=== PATIENT | male | born 1970 | race Caucasian/White ===

== ENCOUNTER 2019-06-04 21:31 | Inpatient (IN) ==
--- NOTE | 2019-06-04 22:36 | DR.EXTPAIN ---
HPI - Time seen Time seen: 22:12 - PCP Primary Care Physician: PATRICIO - Complaint/Symptoms Chief Complaint Doctor Comments: Patient states he has cellulitis in his right leg and was in the emergency room four days ago and was placed on Septra and he thought it was getting better but it started turning red and the blep on his leg started getting larger and recently started draining. He denies fever, chills, cold or cough. States he was told to followup with is local doctor if it did not get better Thursday but the office was closed. States he has had a lump on his right lower leg for 2-3 months and he think he hurt it when he was climbing in his truck and hit his leg and thought he pulled or tore a muscle with the swelling. States he is a diabetic and is taking glipizide 10mg daily and he has been on the keto diet. He denies tobacco or alcohol usage. Chief Complaint:: PT AMBULATORY IN ED WITH C/O LEG WORSENING. WAS HERE Thursday AND GIVEN ANTIBIOTCS. PT STATES HE HAS BEEN TAKING THE MEDS. - Nurses notes reviewed Nurses Notes Review: Yes - Source History Provided: Patient - Mode of arrival Mode of Arrival: Ambulatory - Timing Onset of Chief Complaint: 05/18/19 - Context History of: None - Associated signs and symptoms Associated Signs and Symptoms: Swelling, Bruising (right lower leg) PMH - PMH Past Medical History: Yes Past Medical History: Hypertension, Dyslipidemia, Diabetes, Hypothyroidism, GERD, Arthritis Past Surgical History: Yes Surgical History: Ortho Surgery - Family History History of Family Medical Conditions: Yes Family Medical History: Diabetes Mellitus, Cancer, [place], Hypertension - Social History Does patient currently use any type of tobacco product: No Have you used tobacco products in the last 12 months: No Type of Tobacco Use: None Does any household member use tobacco: No Alcohol Use: Occasionally Do you use any recreational Drugs:: No Lives With: Dad Lives Where: Home - Travel Risk Coronavirus risk:travel/contact w/high risk person: No Has patient experienced Coronavirus symptoms: No - infectious screening In the last 2 months have you had wt loss of >10#?: NO Have you had fever, night sweats or hemotysis?: No Have you traveled outside the country in the last 6 months?: No Isolation: Standard ROS - Review of Systems Constitutional: No Symptoms Reported Eyes: No Symptoms Reported ENTM: No Symptoms Reported Respiratoy: No Symptoms Reported. negative: See HPI, Productive Cough, Non- Productive Cough, Moist Cough, Dry Cough, Hacking Cough, Barking Cough, Brassy Cough, Orthopnea, Short of Breath, Stridor, Wheezing, Hemoptysis, Other Cardiovascular: No Symptoms Reported Gastrointestinal/Abdominal: No Symptoms Reported Genitourinary: No Symptoms Reported. negative: See HPI, Discharge, Dysuria, Frequency, Hematuria, Pain, Bleeding, Other Neurological: No Symptoms Reported Musculoskeletal: No Symptoms Reported, Right, Leg (redness, erythema; 6-9 cm bl ister) Integumentary: No Symptoms Reported, Lesions (right lower leg) Hematologic/Lymphatic: No Symptoms Reported. negative: See HPI, Anemia, Blood C lots, Easy Bleeding, Easy Bruising, Swollen Glands, Lymphadenopathy, Other Endocrine: No Symptoms Reported Psychiatric: No Symptoms Reported. negative: See HPI, Anxiety, Depression, Hallucinations, Excessive crying, Suicidal, Other PE - General Limitations: No Limitations General Appearance: Alert - Head Head Exam: Normal Inspection, Atraumatic, Normocephalic - Eyes Eye exam: Normal Appearance, PERRL, EOMI. negative: Scleral Icterus, Conjunctival Injection, Nystagmus, Miosis, Mydrasis, Periorbital Swelling, Periorbital Tenderness, Other - ENT ENT Exam: Normal Exam, Normal Oropharynx, Normal External Ear Exam, Mucous Membranes Moist, TM's Normal Bilaterally - Neck Neck Exam: Normal Inspection, Full ROM, Trachea Midline. negative: Tenderness, Meningismus, Lymphadenopathy, Thyromegaly, Other - Chest Chest Inspection: Normal Inspection, Symmetric Chest Wall Rise - Respiratory Respiratory Exam: Normal Lung Sounds Bilat. negative: Accessory Muscle Use, Chest Wall Tenderness, Prolonged Expiratory Phase, Respiratory Distress, Stridor, Other Respiratory Exam: Bilateral Clear to Auscultation - Cardiovascular Cardiovascular Exam: Regular Rate, Normal Rhythm, Normal Heart Sounds. negative: Bradycardia, Tachycardia, Irregular Rhythm, Systolic Murmur, Diastolic Murmur, Rubs, Gallop, Clicks, JVD, +S1, +S2, +S3, +S4, Other - Abdominal Exam Abdominal Exam: Normal Inspection, Normal Bowel Sounds, Soft. negative: Distention, Tenderness, Guarding, Rebound, Rigidity, Dimnished Bowel Sounds, Hyperactive Bowel Sounds, Hypoactive Bowel Sounds, Organomegaly, Trauma, Incision, Ascites, Mass, Bruit, Pulsatile Mass, Hernia, Other Abdominal Tenderness: negative: RUQ, RLQ, LUQ, LLQ, Epigastrium, Suprapubic, Diffuse, Mild, Moderate, Severe, Other - Extremities Extremities Exam: Normal Inspection, Full ROM, Normal Capillary Refill, Edema (2+ edema right lower leg and foot; erythema right lower leg) - Upper Extremities Shoulder Exam: Normal Inspection, Full ROM. negative: Tenderness, Swelling, Abrasion, Laceration, Ecchymosis, Deformity, Crepitus, Dislocation, Erythema, Tenderness over AC Joint, Other Arm Exam: Normal Inspection, Full ROM. negative: Tenderness, Swelling, Abrasion , Laceration, Ecchymosis, Deformity, Crepitus, Erythema, Other Elbow Exam: Normal Inspection, Full ROM. negative: Tenderness, Swelling, Abrasion, Laceration, Ecchymosis, Deformity, Crepitus, Dislocation, Erythema, Effusion, Pain w/ pronation, Pain w/ Spuination, Tenderness over Radial Head, Other Forearm Exam: Normal Inspection, Full ROM. negative: Tenderness, Swelling, Abrasion, Laceration, Ecchymosis, Deformity, Crepitus, Erythema, Dislocation, Other Hand Exam: Normal Inspection, Full ROM. negative: Tenderness, Swelling, Abrasion, Laceration, Ecchymosis, Skin Avulsion, Deformity, Crepitus, Erythema, Dislocation, Amputation, Nail Avulsion, Subungual Hematoma, Other Neuromotor Exam: Normal Exam Neurosensory Exam: Normal Exam Upper Ext. Vascular Exam: Capillary Refill (normal) - Lower Extremities Hip/Pelvis Exam: Normal Inspection, Full ROM. negative: Tenderness, Swelling, Abrasion, Laceration, Ecchymosis, Deformity, Crepitus, Dislocation, Erythema, External Rotation, Internal Rotation, Shortening, Pelvis Stable, Other Upper Leg Exam: Normal Inspection, Full ROM. negative: Tenderness, Swelling, Abrasion, Laceration, Ecchymosis, Deformity, Crepitus, Dislocation, Erythema, Other Knee Exam: Normal Inspection, Full ROM. negative: Tenderness, Swelling, Abrasion, Laceration, Ecchymosis, Deformity, Crepitus, Dislocation, Erythema, Effusion, Anterior Drawer Sign, Posterior Draw Sign, Pain with Valgus, Laxity with Valgus, Pain with Varus, Knee Extension Intact, Other Lower Leg Exam: Normal Inspection, Full ROM, Tenderness, Swelling (right lower leg with erythematous area; serosanqunous drainage), Erythema Ankle Exam: Normal Inspection, Full ROM. negative: Tenderness, Swelling, Abrasion, Laceration, Ecchymosis, Deformity, Crepitus, Dislocation, Erythema, Tenderness over talofibular lig, Anterior Draw Sign, Other Foot/Toe Exam: Normal Inspection, Full ROM. negative: Tenderness, Swelling, Abrasion, Laceration, Ecchymosis, Deformity, Crepitus, Dislocation, Erythema, Amputation, Puncture Wound, Foreign Body, Calcaneal Tenderness, Nail Avulsion, Other Neurovascular/Tendon Exam: Normal Capillary Refill, Normal 2-point discrimination, Normal Fine/Light Touch Gait Exam: Observed and Normal - Back Back Exam: Normal Inspection, Full ROM. negative: Tenderness, (R) CVA T enderness, (L) CVA Tenderness, Muscle Spasm, Paraspinal Tenderness, Vertebral Tenderness, Rashes, (R) Sciatic Notch Tenderness, (L) Sciatic Notch Tendern, (R) Straight Leg Raise, (L) Straight Leg Raise, Other - Neurological Neurological Exam: Alert, Oriented X3, CN II-XII Intact, Normal Gait, Reflexes Normal - Psychiatric Psychiatric Exam: Normal Affect, Normal Mood. negative: Depressed, Agitated, Anxious, Flat Affect, Manic, Homicidal Ideation, Suicidal Ideation, Other - Skin Skin Exam: Warm, Dry, Intact, Normal Color, Erythema Type of Lesion: Abscess Distribution: RLE Description: Erythematous, Swelling, Macular, Bullous - Vital Signs Vitals: Temperature 98.2 F Pulse Rate 78 Respiratory Rate 20 Blood Pressure 157/70 O2 Sat by Pulse Oximetry 97 Course - Reevaluation 1st: Improved - Consultation Called: 00:12 Call Returned: 00:12 (Dr. Mcclain to admit) - Education/Counseling Education/Counseling: Patient Educated On: Treatment, Diagnosis, Needs for Follow Up ROR - Labs Reviewed Laboratory Results Reviewed?: Yes (All labs and x-ray results reviewed and discussed with patient) Result Diagrams: 06/04/19 22:53 06/04/19 22:53 - XRAY XRAY Interpreted by: Radiologist (right TIB/FIB: No evidence of fracture or joint dislocation. Diffuse soft tissue swelling right lower leg.) - Labs Reviewed Laboratory: 06/04/19 22:35 Leg - Right Gram Stain - Final WBC 21.0 X10^3/uL (3.6-10.0) H 06/04/19 22:53 RBC 5.80 X10^6/uL (4.7-6.0) 06/04/19 22:53 Hgb 17.1 g/dL (13.5-18.0) 06/04/19 22:53 Hct 50.4 % (42.0-54.0) 06/04/19 22:53 MCV 86.9 fL (80.0-100.0) 06/04/19 22:53 MCH 29.4 pg (27.0-34.0) 06/04/19 22:53 MCHC 33.9 g/dL (33.0-35.0) 06/04/19 22:53 RDW 13.6 % (11.6-16.5) 06/04/19 22:53 Plt Count 273 X10^3/uL (150.0-450.0) 06/04/19 22:53 Plt Count Comment Adequate (ADEQUATE) 06/04/19 22:53 MPV 8.9 fL (7.4-11.0) 06/04/19 22:53 Neut % (Auto) 78.2 % (42.0-75.0) H 06/04/19 22:53 Lymph % (Auto) 11.8 % (21.0-51.0) L 06/04/19 22:53 [place] % (Auto) 8.5 % (0.0-13.0) 06/04/19 22:53 Eos % (Auto) 1.0 % (0.9-2.9) 06/04/19 22:53 Baso % (Auto) 0.5 % (0.2-1.0) 06/04/19 22:53 Neut # (Auto) 16.4 x10^3/uL (2.2-4.8) H 06/04/19 22:53 Lymph # (Auto) 2.5 X10^3/uL (1.3-2.9) 06/04/19 22:53 [place] # (Auto) 1.8 x10^3/uL (0.3-0.8) H 06/04/19 22:53 Eos # (Auto) 0.2 x10^3/uL (0.0-0.2) 06/04/19 22:53 Baso # (Auto) 0.1 X10^3/uL (0.0-0.1) 06/04/19 22:53 Absolute Nucleated RBC 0.1 /100WBC 06/04/19 22:53 Total Counted 100 06/04/19 22:53 Neutrophils % (Manual) 79 % (39-76) H 06/04/19 22:53 Lymphocytes % (Manual) 13 % (13-43) 06/04/19 22:53 Monocytes % (Manual) 7 % (4-9) 06/04/19 22:53 Plt Clumps, EDTA Few 06/04/19 22:53 Plt Morphology Comment Normal (NORMAL) 06/04/19 22:53 RBC Morphology Normal (NORMAL) 06/04/19 22:53 D-Dimer 291 ng/mL (0-400) 06/04/19 22:53 Sodium 135 mmol/L (136-145) L 06/04/19 22:53 Corrected Sodium 135 mmol/L (136-145) L 06/04/19 22:53 Potassium 3.8 mmol/L (3.5-5.1) 06/04/19 22:53 Chloride 100 mmol/L (98-107) 06/04/19 22:53 Carbon Dioxide 28.0 mmol/L (21-32) 06/04/19 22:53 BUN 19 mg/dL (7-18) H 06/04/19 22:53 Creatinine 1.49 mg/dL (0.70-1.30) H 06/04/19 22:53 Est GFR (MDRD) Af Amer > 60 (>60) 06/04/19 22:53 Est GFR (MDRD) Non-Af 53 (>60) L 06/04/19 22:53 Glucose 120 mg/dL (65-99) H 06/04/19 22:53 Lactic Acid 1.5 mmol/L (0.4-2.0) 06/04/19 22:53 Calcium 8.8 mg/dL (8.5-10.1) 06/04/19 22:53 Corrected Calcium 9.9 mg/dL (8.5-10.1) 06/04/19 22:53 Total Bilirubin 0.40 mg/dL (0.2-1.0) 06/04/19 22:53 AST 26 Units/L (15-37) 06/04/19 22:53 ALT 42 Units/L (12-78) 06/04/19 22:53 Alkaline Phosphatase 73 Units/L (46-116) 06/04/19 22:53 Total Protein 6.9 g/dL (6.4-8.2) 06/04/19 22:53 Albumin 2.6 g/dL (3.4-5.0) L 06/04/19 22:53 Globulin 4.3 g/dL (2.5-4.5) 06/04/19 22:53 Albumin/Globulin Ratio 0.6 Ratio (1.1-2.1) L 06/04/19 22:53 Fluid WBC 835094 Cubic/mm 06/04/19 22:35 Fluid RBC 03987 Cubic/mm 06/04/19 22:35 Opioid - Opioid Risk Tool Age (Amos box if 16-45): No History of Preadolescent Sexual Abuse: No Total: 0 Total Score Risk Category: Low Risk - Diagnosis Discharge Problem: Cellulitis and abscess of right lower extremity, Failure of outpatient treatment Diabetes mellitus Qualifiers: Diabetes mellitus type: type 2 Diabetes mellitus complication status: with skin complications Chronic kidney disease (CKD) Qualifiers: Chronic kidney disease stage: stage 3 (moderate) Qualified Code(s): N18.3 - Chronic kidney disease, stage 3 (moderate) Hypertension Qualifiers: Hypertension type: essential hypertension Qualified Code(s): I10 - Essential (primary) hypertension - Discharge Plan Disposition: ADMITTED INPATIENT Condition: Stable - Follow ups/Referrals Follow ups/Referrals: YESSY PRO [Primary Care Provider] - 3 days - Instructions
[2019-06-04 23:08] LABS: BASOPHILS # (AUTO) 0.1 X10^3/uL (0.0-0.1); MEAN PLATELET VOLUME 8.9 fL (7.4-11.0); MONOCYTES # (AUTO) 1.8 x10^3/uL (0.3-0.8); NEUTROPHILS # (AUTO) 16.4 x10^3/uL (2.2-4.8)
[2019-06-04 23:12] LABS: BASOPHILS % (AUTO) 0.5 % (0.2-1.0); EOSINOPHILS # (AUTO) 0.2 x10^3/uL (0.0-0.2); HEMATOCRIT 50.4 % (42.0-54.0); HEMOGLOBIN 17.1 g/dL (13.5-18.0); LYMPHOCYTES # (AUTO) 2.5 X10^3/uL (1.3-2.9); LYMPHOCYTES % (AUTO) 11.8 % (21.0-51.0); MEAN CORPUSCULAR HEMOGLOBIN 29.4 pg (27.0-34.0); MEAN CORPUSCULAR HGB CONC 33.9 g/dL (33.0-35.0); MEAN CORPUSCULAR VOLUME 86.9 fL (80.0-100.0); MONOCYTES % (AUTO) 8.5 % (0.0-13.0); NEUTROPHILS % (AUTO) 78.2 % (42.0-75.0); PLATELET COUNT 273 X10^3/uL (150.0-450.0); RED CELL DISTRIBUTION WIDTH 13.6 % (11.6-16.5)
[2019-06-04 23:13] LABS: RBC BODY FLUID 35751 Cubic/mm; WBC BODY FLUID 245808 Cubic/mm
--- NOTE | 2019-06-04 23:13 | RAD ---
STUDY: LOWER LEG, TIB/FIB RIGHTCOMPARISON: NoneHISTORY: CELLULITIS WITH ABSCESS TO RIGHT LOWER LEGFINDINGS:There is no evidence of fracture or joint dislocation.There is no evidence of an embedded radiopaque foreign body.Diffuse soft tissue swelling is seen throughout the right lower extremity with a focal hop over the anterior aspect of the mid tibia.IMPRESSION:There is no evidence of fracture or joint dislocation.Electronically signed by: Derek Del Castillo (Jun 04, 2019 23:12:25)
[2019-06-04 23:18] LABS: ALANINE AMINOTRANSFERASE 42 Units/L (12-78); ALBUMIN 2.6 g/dL (3.4-5.0); ALKALINE PHOSPHATASE 73 Units/L (46-116); ASPARTATE AMINO TRANSFERASE 26 Units/L (15-37); BLOOD UREA NITROGEN 19 mg/dL (7-18); CALCIUM 8.8 mg/dL (8.5-10.1); CHLORIDE 100 mmol/L (98-107); COR CA(FOR HYPOALB) 9.9 mg/dL (8.5-10.1); COR NA(FOR HYPERGLY) 135 mmol/L (136-145); CREATININE 1.49 mg/dL (0.70-1.30); SODIUM 135 mmol/L (136-145); TOTAL PROTEIN 6.9 g/dL (6.4-8.2); eGFR NON BLACK RACES 53 (>60)
[2019-06-04 23:30] LABS: PLATELET MORPHOLOGY COMMENT NORMAL (NORMAL)
[2019-06-04 23:35] LABS: LACTIC ACID 1.5 mmol/L (0.4-2.0)
[2019-06-05] MEDS ORDERED: VANCOMYCIN IV *PREMIX 1 G/200 ML BAG 1 G/200 ML PIGGYBACK IV ONE (00:08)
[2019-06-05] MEDS ORDERED: ZOSYN VIAL 3.375 GRAMS 3.375 G in NS 100 ML IV + SPIKE MINIBAG* 100 ML IV ONE (00:08)
[2019-06-05] MEDS ORDERED: NS 1000 ML 1,000 ML ONE (00:11)
[2019-06-05] MEDS ORDERED: VANCOMYCIN HCL ONE (00:12)
[2019-06-05] MEDS ORDERED: NS 250 ML IV 250 ML IV ONE (00:12)
[2019-06-05] MEDS ORDERED: NS 100 ML IV + SPIKE MINIBAG* 100 ML IV ONE ×2 (00:16→05:31)
[2019-06-05] MEDS ORDERED: ZOSYN VIAL 3.375 GRAMS IV ONE ×2 (00:17→05:31)
[2019-06-05] MEDS ORDERED: VANCOMYCIN IV *PREMIX 1 G/200 ML BAG 1 G/200 ML PIGGYBACK IV SCH (00:30)
[2019-06-05] MEDS: ZOSYN VIAL 3.375 GRAMS 3.375 G in NS 100 ML IV + SPIKE MINIBAG* 100 ML IV SCH ×4 (00:34→23:45)
[2019-06-05] MEDS ORDERED: NORCO 5/325 MG TAB PO PRN (00:42)
[2019-06-05] MEDS ORDERED: ZOFRAN TAB 4 MG PO PRN (00:42)
[2019-06-05] MEDS ORDERED: MOTRIN TAB 600 MG PO PRN (00:42)
[2019-06-05 01:48] VITALS: BMI 44.6
[2019-06-05 06:11] LABS: BASOPHILS % (AUTO) 0.3 % (0.2-1.0); EOSINOPHILS # (AUTO) 0.2 x10^3/uL (0.0-0.2); EOSINOPHILS % (AUTO) 1.2 % (0.9-2.9); HEMATOCRIT 46.1 % (42.0-54.0); HEMOGLOBIN 15.7 g/dL (13.5-18.0); LYMPHOCYTES # (AUTO) 1.7 X10^3/uL (1.3-2.9); MEAN CORPUSCULAR HEMOGLOBIN 29.9 pg (27.0-34.0); MEAN CORPUSCULAR VOLUME 87.8 fL (80.0-100.0); MEAN PLATELET VOLUME 9.2 fL (7.4-11.0); MONOCYTES # (AUTO) 1.3 x10^3/uL (0.3-0.8); MONOCYTES % (AUTO) 9.6 % (0.0-13.0); NEUTROPHILS # (AUTO) 10.6 x10^3/uL (2.2-4.8); NEUTROPHILS % (AUTO) 76.9 % (42.0-75.0); PLATELET COUNT 241 X10^3/uL (150.0-450.0); RED BLOOD COUNT 5.25 X10^6/uL (4.7-6.0); WHITE BLOOD COUNT 13.8 X10^3/uL (3.6-10.0)
[2019-06-05 06:20] LABS: ALANINE AMINOTRANSFERASE 37 Units/L (12-78); ALBUMIN 2.2 g/dL (3.4-5.0); ALKALINE PHOSPHATASE 68 Units/L (46-116); ASPARTATE AMINO TRANSFERASE 24 Units/L (15-37); BLOOD UREA NITROGEN 17 mg/dL (7-18); CALCIUM 8.3 mg/dL (8.5-10.1); CARBON DIOXIDE 24.3 mmol/L (21-32); CHLORIDE 101 mmol/L (98-107); COR CA(FOR HYPOALB) 9.7 mg/dL (8.5-10.1); COR NA(FOR HYPERGLY) 137 mmol/L (136-145); CREATININE 1.19 mg/dL (0.70-1.30); SODIUM 134 mmol/L (136-145); TOTAL PROTEIN 6.2 g/dL (6.4-8.2); eGFR NON BLACK RACES > 60 (>60)
[2019-06-05] MEDS: VANCOMYCIN HCL 2 G in NS 500 ML IV 500 ML IV SCH ×2 (09:30→20:55)
--- NOTE | 2019-06-05 10:46 | DR.H&P ---
H&P History & Physical for Day of: H&P Date: 06/05/19 Chief Complaint Chief Complaint: right leg swelling and redness Allergies Allergies Allergy/AdvReac Type Severity Reaction Status Date / Time No Known Drug Allergies Allergy Verified 05/31/19 20:41 History of Present Illness History of Present Illness: Mr. Brito is a 49y/o male with a PMH of HTN, HLD, DM and obesity presented with worsening right leg swelling, redness and drainage. He states he slipped of his truck a week ago and had a small injury to his anterior right leg. He was seen in the ED few days ago and given Bactrim for cellulitis. He states the redness and swelling kept getting worse and he also noticed serosanguineous fluid draining from the center. He denies fever or chills, no N/V/D or abdominal pain. He reports having cellulitis over 10 yrs ago, no hx of MRSA or bacteremia. ED work-up: -Right leg wound was drained, XR showed diffuse soft tissue swelling. Cultures were collected and he was started on Vanc and Zosyn. He also had mild elevation in Cr. Plan: continue Vanc and Zosyn, add clindamycin for [address] Monitor [address] Cabral consulted for possible I&D. Resume home medications except acei and Lasix due to SONIA. Monitor AM labs. Past Medical History Past Medical History: Arthritis, Diabetes, Dyslipidemia, GERD, Hypertension and Hypothyroidism Past Surgical History Surgical History: Ortho Surgery Family History Family Medical History: Diabetes Mellitus, Cancer, [place] and Hypertension Social History Does patient currently use any type of tobacco product: No Have you used tobacco products in the last 12 months: Yes Type of Tobacco Use: Cigars Does any household member use tobacco: No Alcohol Use: Rarely Drug Use: None Medications Home Medications: No Known Drug Allergies Allergy (Verified 05/31/19 20:41) CONTINUE taking the following medications atorvastatin 40 mg PO DAILY 06/05/19 [History] hydrocodone-acetaminophen [[place]] 1 tab PO BID PRN 06/05/19 [History] Labs Result Diagrams: 06/05/19 05:21 06/05/19 05:21 Labs: 06/04/19 22:35 Leg - Right Gram Stain - Final Laboratory WBC 13.8 X10^3/uL (3.6-10.0) H 06/05/19 05:21 RBC 5.25 X10^6/uL (4.7-6.0) 06/05/19 05:21 Hgb 15.7 g/dL (13.5-18.0) 06/05/19 05:21 Hct 46.1 % (42.0-54.0) 06/05/19 05:21 MCV 87.8 fL (80.0-100.0) 06/05/19 05:21 MCH 29.9 pg (27.0-34.0) 06/05/19 05:21 MCHC 34.0 g/dL (33.0-35.0) 06/05/19 05:21 RDW 14.0 % (11.6-16.5) 06/05/19 05:21 Plt Count 241 X10^3/uL (150.0-450.0) 06/05/19 05:21 Plt Count Comment Adequate (ADEQUATE) 06/04/19 22:53 MPV 9.2 fL (7.4-11.0) 06/05/19 05:21 Neut % (Auto) 76.9 % (42.0-75.0) H 06/05/19 05:21 Lymph % (Auto) 12.0 % (21.0-51.0) L 06/05/19 05:21 [place] % (Auto) 9.6 % (0.0-13.0) 06/05/19 05:21 Eos % (Auto) 1.2 % (0.9-2.9) 06/05/19 05:21 Baso % (Auto) 0.3 % (0.2-1.0) 06/05/19 05:21 Neut # (Auto) 10.6 x10^3/uL (2.2-4.8) H 06/05/19 05:21 Lymph # (Auto) 1.7 X10^3/uL (1.3-2.9) 06/05/19 05:21 [place] # (Auto) 1.3 x10^3/uL (0.3-0.8) H 06/05/19 05:21 Eos # (Auto) 0.2 x10^3/uL (0.0-0.2) 06/05/19 05:21 Baso # (Auto) 0.0 X10^3/uL (0.0-0.1) 06/05/19 05:21 Absolute Nucleated RBC 0.0 /100WBC 06/05/19 05:21 Total Counted 100 06/04/19 22:53 Neutrophils % (Manual) 79 % (39-76) H 06/04/19 22:53 Lymphocytes % (Manual) 13 % (13-43) 06/04/19 22:53 Monocytes % (Manual) 7 % (4-9) 06/04/19 22:53 Plt Clumps, EDTA Few 06/04/19 22:53 Plt Morphology Comment Normal (NORMAL) 06/04/19 22:53 RBC Morphology Normal (NORMAL) 06/04/19 22:53 D-Dimer 291 ng/mL (0-400) 06/04/19 22:53 Sodium 134 mmol/L (136-145) L 06/05/19 05:21 Corrected Sodium 137 mmol/L (136-145) 06/05/19 05:21 Potassium 3.7 mmol/L (3.5-5.1) 06/05/19 05:21 Chloride 101 mmol/L (98-107) 06/05/19 05:21 Carbon Dioxide 24.3 mmol/L (21-32) 06/05/19 05:21 BUN 17 mg/dL (7-18) 06/05/19 05:21 Creatinine 1.19 mg/dL (0.70-1.30) 06/05/19 05:21 Est GFR (MDRD) Af Amer > 60 (>60) 06/05/19 05:21 Est GFR (MDRD) Non-Af > 60 (>60) 06/05/19 05:21 Glucose 213 mg/dL (65-99) H 06/05/19 05:21 Lactic Acid 1.5 mmol/L (0.4-2.0) 06/04/19 22:53 Calcium 8.3 mg/dL (8.5-10.1) L 06/05/19 05:21 Corrected Calcium 9.7 mg/dL (8.5-10.1) 06/05/19 05:21 Total Bilirubin 0.50 mg/dL (0.2-1.0) 06/05/19 05:21 AST 24 Units/L (15-37) 06/05/19 05:21 ALT 37 Units/L (12-78) 06/05/19 05:21 Alkaline Phosphatase 68 Units/L (46-116) 06/05/19 05:21 Total Protein 6.2 g/dL (6.4-8.2) L 06/05/19 05:21 Albumin 2.2 g/dL (3.4-5.0) L 06/05/19 05:21 Globulin 4.0 g/dL (2.5-4.5) 06/05/19 05:21 Albumin/Globulin Ratio 0.6 Ratio (1.1-2.1) L 06/05/19 05:21 Fluid WBC 138535 Cubic/mm 06/04/19 22:35 Fluid RBC 33146 Cubic/mm 06/04/19 22:35 Review of Systems Constitutional: denies Fever and Weakness Eyes: No Symptoms Reported ENT: No Symptoms Reported Respiratory: No Symptoms Reported Cardiovascular: No Symptoms Reported Gastrointestinal: No Symptoms Reported Genitourinary: No Symptoms Reported Musculoskeletal: Back Pain and Leg Pain Skin: Wound Neurological: No Symptoms Reported Physical Exam Vital Signs: Temperature 98.1 F Pulse Rate [Apical] 77 Pulse Rate [Left Brachial] 78 Pulse Rate 78 Respiratory Rate 20 Blood Pressure [Left Arm] 142/68 Blood Pressure 144/74 O2 Sat by Pulse Oximetry 98 Oriented: Normal Eyes: Normal Ear: Normal Throat: Normal Respiratory: Clear Throughout Cardiovascular: Normal Auscultation: Bowel Sounds: Normal Palpation: Normal Tenderness: Normal Skin: Red, Wound and Other (right anterior leg, erythematous, abscess collection in the center, raised, warm, non-tender, no drainage noted ) Psychiatric: Normal Mood Description: Calm Affect: Normal Speech Pattern: Clear and Appropriate Assessment/Plan (1) Cellulitis and abscess of right lower extremity: Status: Acute (2) Diabetes mellitus: Qualifiers: Diabetes mellitus complication detail: with other skin complication Diabetes mellitus complication status: with skin complications Diabetes mellitus half-way insulin use: without meterman use Diabetes mellitus type: type 2 Qualified Code(s): E11.628 - Type 2 diabetes mellitus with other skin complications Status: Acute (3) Hypertension: Qualifiers: Hypertension type: essential hypertension Qualified Code(s): I10 - Essential (primary) hypertension Status: Acute (4) GERD (gastroesophageal reflux disease): Qualifiers: Esophagitis presence: esophagitis presence not specified Qualified Code(s): K21.9 - Gastro-esophageal reflux disease without esophagitis Status: Acute (5) HLD (hyperlipidemia): Qualifiers: Hyperlipidemia type: unspecified Qualified Code(s): E78.5 - Hyperlipidemia, unspecified Status: Acute (6) Hypothyroidism: Qualifiers: Hypothyroidism type: unspecified Qualified Code(s): E03.9 - Hypothyroidism, unspecified Status: Acute Review H&P Reviewed: Yes Patient was examined?: Yes
[2019-06-05] MEDS: TENORMIN PO SCH (11:00)
[2019-06-05] MEDS: LIPITOR TAB 40 MG PO SCH (11:00)
[2019-06-05] MEDS: CARDIZEM CD 120 MG 24-HR PO SCH (11:00)
[2019-06-05] MEDS: SYNTHROID 25 mcg TAB PO SCH (11:00)
[2019-06-05] MEDS: ALDACTONE TAB 25 MG PO SCH (11:00)
[2019-06-05] MEDS: CLEOCIN 600 MG IV PREMIX 600 MG/50 ML BAG IV SCH ×2 (12:00→20:10)
[2019-06-05] MEDS ORDERED: XYLOCAINE 1 % (PLAIN) ONE (12:14)
[2019-06-05] MEDS: HumuLIN R SC PRN (21:08)
[2019-06-06 06:05] LABS: BASOPHILS # (AUTO) 0.1 X10^3/uL (0.0-0.1); BASOPHILS % (AUTO) 0.9 % (0.2-1.0); EOSINOPHILS # (AUTO) 0.3 x10^3/uL (0.0-0.2); EOSINOPHILS % (AUTO) 2.5 % (0.9-2.9); HEMATOCRIT 46.2 % (42.0-54.0); HEMOGLOBIN 15.4 g/dL (13.5-18.0); LYMPHOCYTES # (AUTO) 2.1 X10^3/uL (1.3-2.9); LYMPHOCYTES % (AUTO) 18.4 % (21.0-51.0); MEAN CORPUSCULAR HGB CONC 33.3 g/dL (33.0-35.0); MEAN CORPUSCULAR VOLUME 87.3 fL (80.0-100.0); MEAN PLATELET VOLUME 8.9 fL (7.4-11.0); MONOCYTES % (AUTO) 8.9 % (0.0-13.0); NEUTROPHILS % (AUTO) 69.3 % (42.0-75.0); PLATELET COUNT 283 X10^3/uL (150.0-450.0); WHITE BLOOD COUNT 11.5 X10^3/uL (3.6-10.0)
[2019-06-06] MEDS: CLEOCIN 600 MG IV PREMIX 600 MG/50 ML BAG IV SCH (06:10)
[2019-06-06 06:11] LABS: BLOOD UREA NITROGEN 12 mg/dL (7-18); CALCIUM 8.1 mg/dL (8.5-10.1); CARBON DIOXIDE 27.1 mmol/L (21-32); CHLORIDE 105 mmol/L (98-107); COR NA(FOR HYPERGLY) 139 mmol/L (136-145); CREATININE 1.07 mg/dL (0.70-1.30); SODIUM 139 mmol/L (136-145); eGFR NON BLACK RACES > 60 (>60)
[2019-06-06] MEDS: ZOSYN VIAL 3.375 GRAMS 3.375 G in NS 100 ML IV + SPIKE MINIBAG* 100 ML IV SCH ×3 (06:45→22:14)
--- NOTE | 2019-06-06 08:19 | PCM.PROG ---
Progress Note Progress Note for Day of Date of Exam: 06/06/19 Subjective Subjective: Patient seen at bedside, no acute events overnight. Dr. Cabral performed bedside I&D yesterday, tolerated well and cultures were sent. Wound cultures pending. Patient denies any pain, no fever or chills. Denies N/V/D or abdominal pain. Will continue IV abx, follow Dr. Cabral's recommendations. Redness and swelling has improved. Past Medical Family Social History Past Med/Fam/Surg Hx: No changes since H&P Allergies: Allergies No Known Drug Allergies Allergy (Verified 05/31/19 20:41) Review of Systems ROS: No change since H&P Vital Signs and I&O's Vital Signs: Temperature 98.3 F Pulse Rate [Apical] 60 Pulse Rate [Left Brachial] 78 Pulse Rate 78 Respiratory Rate 18 Blood Pressure [Left Arm] 128/65 Blood Pressure 144/74 O2 Sat by Pulse Oximetry 100 Intake and Output: Intake & Output 06/03/19 06/04/19 06/05/19 06/06/19 23:59 23:59 23:59 23:59 Intake Total 2874 / 2874 420 / 420 Output Total 2700 / 2700 525 / 525 Balance 174 / 174 -105 / -105 Physical Exam Oriented: Normal Eyes: Normal Ear: Normal Throat: Normal Respiratory: Normal Cardiovascular: Normal Auscultation: Bowel Sounds: Normal Tenderness: Normal Skin: Red, Wound and Other (right leg dressed, surrounding erythema and swelling has reduced , non-tender ) Psychiatric: Normal Mood Description: Calm Affect: Normal Speech Pattern: Clear and Appropriate Laboratory and Diagnostics Result Diagrams: 06/06/19 04:32 06/06/19 04:32 Labs: 06/04/19 22:35 Leg - Right Gram Stain - Final Laboratory WBC 11.5 X10^3/uL (3.6-10.0) H 06/06/19 04:32 RBC 5.30 X10^6/uL (4.7-6.0) 06/06/19 04:32 Hgb 15.4 g/dL (13.5-18.0) 06/06/19 04:32 Hct 46.2 % (42.0-54.0) 06/06/19 04:32 MCV 87.3 fL (80.0-100.0) 06/06/19 04:32 MCH 29.0 pg (27.0-34.0) 06/06/19 04:32 MCHC 33.3 g/dL (33.0-35.0) 06/06/19 04:32 RDW 14.0 % (11.6-16.5) 06/06/19 04:32 Plt Count 283 X10^3/uL (150.0-450.0) 06/06/19 04:32 Plt Count Comment Adequate (ADEQUATE) 06/04/19 22:53 MPV 8.9 fL (7.4-11.0) 06/06/19 04:32 Neut % (Auto) 69.3 % (42.0-75.0) 06/06/19 04:32 Lymph % (Auto) 18.4 % (21.0-51.0) L 06/06/19 04:32 [place] % (Auto) 8.9 % (0.0-13.0) 06/06/19 04:32 Eos % (Auto) 2.5 % (0.9-2.9) 06/06/19 04:32 Baso % (Auto) 0.9 % (0.2-1.0) 06/06/19 04:32 Neut # (Auto) 8.0 x10^3/uL (2.2-4.8) H 06/06/19 04:32 Lymph # (Auto) 2.1 X10^3/uL (1.3-2.9) 06/06/19 04:32 [place] # (Auto) 1.0 x10^3/uL (0.3-0.8) H 06/06/19 04:32 Eos # (Auto) 0.3 x10^3/uL (0.0-0.2) H 06/06/19 04:32 Baso # (Auto) 0.1 X10^3/uL (0.0-0.1) 06/06/19 04:32 Absolute Nucleated RBC 0.0 /100WBC 06/06/19 04:32 Total Counted 100 06/04/19 22:53 Neutrophils % (Manual) 79 % (39-76) H 06/04/19 22:53 Lymphocytes % (Manual) 13 % (13-43) 06/04/19 22:53 Monocytes % (Manual) 7 % (4-9) 06/04/19 22:53 Plt Clumps, EDTA Few 06/04/19 22:53 Plt Morphology Comment Normal (NORMAL) 06/04/19 22:53 RBC Morphology Normal (NORMAL) 06/04/19 22:53 D-Dimer 291 ng/mL (0-400) 06/04/19 22:53 Sodium 139 mmol/L (136-145) 06/06/19 04:32 Corrected Sodium 139 mmol/L (136-145) 06/06/19 04:32 Potassium 3.9 mmol/L (3.5-5.1) 06/06/19 04:32 Chloride 105 mmol/L (98-107) 06/06/19 04:32 Carbon Dioxide 27.1 mmol/L (21-32) 06/06/19 04:32 BUN 12 mg/dL (7-18) 06/06/19 04:32 Creatinine 1.07 mg/dL (0.70-1.30) 06/06/19 04:32 Est GFR (MDRD) Af Amer > 60 (>60) 06/06/19 04:32 Est GFR (MDRD) Non-Af > 60 (>60) 06/06/19 04:32 Glucose 120 mg/dL (65-99) H 06/06/19 04:32 POC Glucose (mg/dL) 116 mg/dL (65-99) H 06/06/19 06:12 Lactic Acid 1.5 mmol/L (0.4-2.0) 06/04/19 22:53 Calcium 8.1 mg/dL (8.5-10.1) L 06/06/19 04:32 Corrected Calcium 9.7 mg/dL (8.5-10.1) 06/05/19 05:21 Total Bilirubin 0.50 mg/dL (0.2-1.0) 06/05/19 05:21 AST 24 Units/L (15-37) 06/05/19 05:21 ALT 37 Units/L (12-78) 06/05/19 05:21 Alkaline Phosphatase 68 Units/L (46-116) 06/05/19 05:21 Total Protein 6.2 g/dL (6.4-8.2) L 06/05/19 05:21 Albumin 2.2 g/dL (3.4-5.0) L 06/05/19 05:21 Globulin 4.0 g/dL (2.5-4.5) 06/05/19 05:21 Albumin/Globulin Ratio 0.6 Ratio (1.1-2.1) L 06/05/19 05:21 Fluid WBC 319011 Cubic/mm 06/04/19 22:35 Fluid RBC 63933 Cubic/mm 06/04/19 22:35 Plan (1) Cellulitis and abscess of right lower extremity: Status: Acute (2) Diabetes mellitus: Status: Acute Qualifiers: Diabetes mellitus complication detail: with other skin complication Diabetes mellitus complication status: with skin complications Diabetes mellitus photography editor insulin use: without photography editor use Diabetes mellitus type: type 2 Qualified Code(s): E11.628 - Type 2 diabetes mellitus with other skin complications (3) Hypertension: Status: Acute Qualifiers: Hypertension type: essential hypertension Qualified Code(s): I10 - Essential (primary) hypertension (4) GERD (gastroesophageal reflux disease): Status: Acute Qualifiers: Esophagitis presence: esophagitis presence not specified Qualified Code(s): K21.9 - Gastro-esophageal reflux disease without esophagitis (5) HLD (hyperlipidemia): Status: Acute Qualifiers: Hyperlipidemia type: unspecified Qualified Code(s): E78.5 - Hyperlipidemia, unspecified (6) Hypothyroidism: Status: Acute Qualifiers: Hypothyroidism type: unspecified Qualified Code(s): E03.9 - Hypothyroidism, unspecified
[2019-06-06] MEDS: LIPITOR TAB 40 MG PO SCH (08:52)
[2019-06-06] MEDS: SYNTHROID 25 mcg TAB PO SCH (08:52)
[2019-06-06] MEDS: CARDIZEM CD 120 MG 24-HR PO SCH (08:52)
[2019-06-06] MEDS: ALDACTONE TAB 25 MG PO SCH (08:53)
[2019-06-06] MEDS: TENORMIN PO SCH (08:53)
--- NOTE | 2019-06-06 09:23 | DR.PROGNOT ---
Hospital Progress Notes - Progress Note for Day of: Progress Note Date: 06/06/19 - Chief Complaint Chief Complaint: having large amount of drainage required dressing changes ,. no pain ( severe neuropahy ). - Past Medical Family Social History Past Med/Fam/Surg Hx: No changes since H&P Allergies: Allergies No Known Drug Allergies Allergy (Verified 05/31/19 20:41) - Review Of Systems ROS: No change since H&P - Vital Signs Vital Signs: Temperature 98.3 F Pulse Rate [Apical] 60 Pulse Rate [Left Brachial] 78 Pulse Rate 78 Respiratory Rate 18 Blood Pressure [Left Arm] 128/65 Blood Pressure 144/74 O2 Sat by Pulse Oximetry 100 - Physical Exam Oriented: Normal Eyes: Normal Ear: Normal Throat: Normal Respiratory: Normal Cardiovascular: Normal GI:Auscultation: Normal GI:Palpation: Normal GI: Tenderness: Normal Skin: Red, Wound, Other (right leg dressed, surrounding erythema and swelling watters s reduced , non-tender) Psychiatric: Normal Mood Description: Calm Affect: Normal Speech Pattern: Clear, Appropriate - Laboratory and Diagnostics Result Diagrams: 06/06/19 04:32 06/06/19 04:32 Labs: 06/04/19 22:35 Leg - Right Gram Stain - Final Laboratory WBC 11.5 X10^3/uL (3.6-10.0) H 06/06/19 04:32 RBC 5.30 X10^6/uL (4.7-6.0) 06/06/19 04:32 Hgb 15.4 g/dL (13.5-18.0) 06/06/19 04:32 Hct 46.2 % (42.0-54.0) 06/06/19 04:32 MCV 87.3 fL (80.0-100.0) 06/06/19 04:32 MCH 29.0 pg (27.0-34.0) 06/06/19 04:32 MCHC 33.3 g/dL (33.0-35.0) 06/06/19 04:32 RDW 14.0 % (11.6-16.5) 06/06/19 04:32 Plt Count 283 X10^3/uL (150.0-450.0) 06/06/19 04:32 Plt Count Comment Adequate (ADEQUATE) 06/04/19 22:53 MPV 8.9 fL (7.4-11.0) 06/06/19 04:32 Neut % (Auto) 69.3 % (42.0-75.0) 06/06/19 04:32 Lymph % (Auto) 18.4 % (21.0-51.0) L 06/06/19 04:32 [place] % (Auto) 8.9 % (0.0-13.0) 06/06/19 04:32 Eos % (Auto) 2.5 % (0.9-2.9) 06/06/19 04:32 Baso % (Auto) 0.9 % (0.2-1.0) 06/06/19 04:32 Neut # (Auto) 8.0 x10^3/uL (2.2-4.8) H 06/06/19 04:32 Lymph # (Auto) 2.1 X10^3/uL (1.3-2.9) 06/06/19 04:32 [place] # (Auto) 1.0 x10^3/uL (0.3-0.8) H 06/06/19 04:32 Eos # (Auto) 0.3 x10^3/uL (0.0-0.2) H 06/06/19 04:32 Baso # (Auto) 0.1 X10^3/uL (0.0-0.1) 06/06/19 04:32 Absolute Nucleated RBC 0.0 /100WBC 06/06/19 04:32 Total Counted 100 06/04/19 22:53 Neutrophils % (Manual) 79 % (39-76) H 06/04/19 22:53 Lymphocytes % (Manual) 13 % (13-43) 06/04/19 22:53 Monocytes % (Manual) 7 % (4-9) 06/04/19 22:53 Plt Clumps, EDTA Few 06/04/19 22:53 Plt Morphology Comment Normal (NORMAL) 06/04/19 22:53 RBC Morphology Normal (NORMAL) 06/04/19 22:53 D-Dimer 291 ng/mL (0-400) 06/04/19 22:53 Sodium 139 mmol/L (136-145) 06/06/19 04:32 Corrected Sodium 139 mmol/L (136-145) 06/06/19 04:32 Potassium 3.9 mmol/L (3.5-5.1) 06/06/19 04:32 Chloride 105 mmol/L (98-107) 06/06/19 04:32 Carbon Dioxide 27.1 mmol/L (21-32) 06/06/19 04:32 BUN 12 mg/dL (7-18) 06/06/19 04:32 Creatinine 1.07 mg/dL (0.70-1.30) 06/06/19 04:32 Est GFR (MDRD) Af Amer > 60 (>60) 06/06/19 04:32 Est GFR (MDRD) Non-Af > 60 (>60) 06/06/19 04:32 Glucose 120 mg/dL (65-99) H 06/06/19 04:32 POC Glucose (mg/dL) 116 mg/dL (65-99) H 06/06/19 06:12 Hemoglobin A1c 6.6 % 06/06/19 04:32 Lactic Acid 1.5 mmol/L (0.4-2.0) 06/04/19 22:53 Calcium 8.1 mg/dL (8.5-10.1) L 06/06/19 04:32 Corrected Calcium 9.7 mg/dL (8.5-10.1) 06/05/19 05:21 Total Bilirubin 0.50 mg/dL (0.2-1.0) 06/05/19 05:21 AST 24 Units/L (15-37) 06/05/19 05:21 ALT 37 Units/L (12-78) 06/05/19 05:21 Alkaline Phosphatase 68 Units/L (46-116) 06/05/19 05:21 Total Protein 6.2 g/dL (6.4-8.2) L 06/05/19 05:21 Albumin 2.2 g/dL (3.4-5.0) L 06/05/19 05:21 Globulin 4.0 g/dL (2.5-4.5) 06/05/19 05:21 Albumin/Globulin Ratio 0.6 Ratio (1.1-2.1) L 06/05/19 05:21 Fluid WBC 592958 Cubic/mm 06/04/19 22:35 Fluid RBC 23597 Cubic/mm 06/04/19 22:35 - Assessment and Plan 1: large abscess Rt lower extremity , S/P I&D . severe diabetic neuropathy . morbid obesity . HTN . same local care , IV ATB , diabetic control and DVT prophylaxis . - Problem Patient Problems: Patient Problems Hypothyroidism (Acute) E03.9 HLD (hyperlipidemia) (Acute) E78.5 GERD (gastroesophageal reflux disease) (Acute) K21.9 Cellulitis and abscess of right lower extremity (Acute) L03.115, L02.415 Diabetes mellitus (Acute) E11.9 Chronic kidney disease (CKD) (Acute) N18.9 Failure of outpatient treatment (Acute) Z78.9 Hypertension (Acute) I10
[2019-06-06] MEDS: VANCOMYCIN HCL 2 G in NS 500 ML IV 500 ML IV SCH ×2 (09:40→22:14)
[2019-06-06] MEDS ORDERED: LOVENOX INJ 40 MG SYR SC SCH (11:00)
[2019-06-06] MEDS: HumuLIN R SC PRN ×2 (11:21→22:15)
[2019-06-06] MEDS ORDERED: PHARMACY COMMENT IV NR (20:30)
[2019-06-06 20:56] LABS: CREATININE 1.29 mg/dL (0.70-1.30); VANCOMYCIN,TROUGH 10.8 ug/mL (15-20)
[2019-06-06] MEDS: LOVENOX INJ 40 MG SYR SC SCH (22:16)
[2019-06-07 05:06] LABS: BASOPHILS # (AUTO) 0.1 X10^3/uL (0.0-0.1); BASOPHILS % (AUTO) 0.5 % (0.2-1.0); EOSINOPHILS # (AUTO) 0.3 x10^3/uL (0.0-0.2); EOSINOPHILS % (AUTO) 2.6 % (0.9-2.9); HEMATOCRIT 46.9 % (42.0-54.0); HEMOGLOBIN 15.8 g/dL (13.5-18.0); LYMPHOCYTES # (AUTO) 1.9 X10^3/uL (1.3-2.9); LYMPHOCYTES % (AUTO) 13.8 % (21.0-51.0); MEAN CORPUSCULAR HEMOGLOBIN 29.2 pg (27.0-34.0); MEAN CORPUSCULAR HGB CONC 33.7 g/dL (33.0-35.0); MEAN CORPUSCULAR VOLUME 86.4 fL (80.0-100.0); MEAN PLATELET VOLUME 8.5 fL (7.4-11.0); MONOCYTES # (AUTO) 0.8 x10^3/uL (0.3-0.8); MONOCYTES % (AUTO) 6.1 % (0.0-13.0); NEUTROPHILS # (AUTO) 10.5 x10^3/uL (2.2-4.8); PLATELET COUNT 298 X10^3/uL (150.0-450.0); RED BLOOD COUNT 5.43 X10^6/uL (4.7-6.0); RED CELL DISTRIBUTION WIDTH 13.7 % (11.6-16.5); WHITE BLOOD COUNT 13.7 X10^3/uL (3.6-10.0)
[2019-06-07 05:12] LABS: BLOOD UREA NITROGEN 12 mg/dL (7-18); CALCIUM 8.1 mg/dL (8.5-10.1); CARBON DIOXIDE 27.1 mmol/L (21-32); CHLORIDE 103 mmol/L (98-107); COR NA(FOR HYPERGLY) 138 mmol/L (136-145); CREATININE 1.12 mg/dL (0.70-1.30); SODIUM 137 mmol/L (136-145); eGFR NON BLACK RACES > 60 (>60)
[2019-06-07] MEDS: ZOSYN VIAL 3.375 GRAMS 3.375 G in NS 100 ML IV + SPIKE MINIBAG* 100 ML IV SCH (05:58)
[2019-06-07] MEDS ORDERED: GLUCOTROL PO SCH (08:05)
[2019-06-07] MEDS ORDERED: LOTENSIN TAB 10 MG PO SCH (09:00)
[2019-06-07] MEDS ORDERED: LASIX PO SCH (09:00)
[2019-06-07] MEDS: LIPITOR TAB 40 MG PO SCH (09:34)
[2019-06-07] MEDS: SYNTHROID 25 mcg TAB PO SCH (09:34)
[2019-06-07] MEDS: ALDACTONE TAB 25 MG PO SCH (09:35)
[2019-06-07] MEDS: CARDIZEM CD 120 MG 24-HR PO SCH (09:35)
[2019-06-07] MEDS: VANCOMYCIN HCL 2 G in NS 500 ML IV 500 ML IV SCH (09:36)
[2019-06-07] MEDS: TENORMIN PO SCH (09:36)
--- NOTE | 2019-06-07 09:44 | DR.PROGNOT ---
Hospital Progress Notes - Progress Note for Day of: Progress Note Date: 06/07/19 - Chief Complaint Chief Complaint: less drainage today . cellulitis is subsiding with less erythema and edema . final culture is staph Aureus sensitive to Augmentin and Bactrim . dressing was changed and packing was removed . - Past Medical Family Social History Past Med/Fam/Surg Hx: No changes since H&P Allergies: Allergies No Known Drug Allergies Allergy (Verified 05/31/19 20:41) - Review Of Systems ROS: No change since H&P - Vital Signs Vital Signs: Temperature 98.4 F Pulse Rate [Apical] 77 Pulse Rate [Left Brachial] 78 Pulse Rate 78 Respiratory Rate 20 Blood Pressure [Left Arm] 154/93 Blood Pressure 144/74 O2 Sat by Pulse Oximetry 95 - Physical Exam Oriented: Normal Eyes: Normal Ear: Normal Throat: Normal Respiratory: Normal Cardiovascular: Normal GI:Auscultation: Normal GI:Palpation: Normal GI: Tenderness: Normal Skin: Red, Wound, Other (right leg dressed, surrounding erythema and swelling has reduced , non-tender) Psychiatric: Normal Mood Description: Calm Affect: Normal Speech Pattern: Clear, Appropriate - Laboratory and Diagnostics Result Diagrams: 06/07/19 04:45 06/07/19 04:45 Labs: 06/05/19 12:32 Drainage Wound Culture - Final Staphylococcus Aureus 06/04/19 22:35 Leg - Right Wound Culture - Final Staphylococcus Aureus 06/04/19 22:35 Leg - Right Gram Stain - Final Laboratory WBC 13.7 X10^3/uL (3.6-10.0) H 06/07/19 04:45 RBC 5.43 X10^6/uL (4.7-6.0) 06/07/19 04:45 Hgb 15.8 g/dL (13.5-18.0) 06/07/19 04:45 Hct 46.9 % (42.0-54.0) 06/07/19 04:45 MCV 86.4 fL (80.0-100.0) 06/07/19 04:45 MCH 29.2 pg (27.0-34.0) 06/07/19 04:45 MCHC 33.7 g/dL (33.0-35.0) 06/07/19 04:45 RDW 13.7 % (11.6-16.5) 06/07/19 04:45 Plt Count 298 X10^3/uL (150.0-450.0) 06/07/19 04:45 Plt Count Comment Adequate (ADEQUATE) 06/04/19 22:53 MPV 8.5 fL (7.4-11.0) 06/07/19 04:45 Neut % (Auto) 77.0 % (42.0-75.0) H 06/07/19 04:45 Lymph % (Auto) 13.8 % (21.0-51.0) L 06/07/19 04:45 [place] % (Auto) 6.1 % (0.0-13.0) 06/07/19 04:45 Eos % (Auto) 2.6 % (0.9-2.9) 06/07/19 04:45 Baso % (Auto) 0.5 % (0.2-1.0) 06/07/19 04:45 Neut # (Auto) 10.5 x10^3/uL (2.2-4.8) H 06/07/19 04:45 Lymph # (Auto) 1.9 X10^3/uL (1.3-2.9) 06/07/19 04:45 [place] # (Auto) 0.8 x10^3/uL (0.3-0.8) 06/07/19 04:45 Eos # (Auto) 0.3 x10^3/uL (0.0-0.2) H 06/07/19 04:45 Baso # (Auto) 0.1 X10^3/uL (0.0-0.1) 06/07/19 04:45 Absolute Nucleated RBC 0.1 /100WBC 06/07/19 04:45 Total Counted 100 06/04/19 22:53 Neutrophils % (Manual) 79 % (39-76) H 06/04/19 22:53 Lymphocytes % (Manual) 13 % (13-43) 06/04/19 22:53 Monocytes % (Manual) 7 % (4-9) 06/04/19 22:53 Plt Clumps, EDTA Few 06/04/19 22:53 Plt Morphology Comment Normal (NORMAL) 06/04/19 22:53 RBC Morphology Normal (NORMAL) 06/04/19 22:53 D-Dimer 291 ng/mL (0-400) 06/04/19 22:53 Sodium 137 mmol/L (136-145) 06/07/19 04:45 Corrected Sodium 138 mmol/L (136-145) 06/07/19 04:45 Potassium 3.7 mmol/L (3.5-5.1) 06/07/19 04:45 Chloride 103 mmol/L (98-107) 06/07/19 04:45 Carbon Dioxide 27.1 mmol/L (21-32) 06/07/19 04:45 BUN 12 mg/dL (7-18) 06/07/19 04:45 Creatinine 1.12 mg/dL (0.70-1.30) 06/07/19 04:45 Est GFR (MDRD) Af Amer > 60 (>60) 06/07/19 04:45 Est GFR (MDRD) Non-Af > 60 (>60) 06/07/19 04:45 Glucose 141 mg/dL (65-99) H 06/07/19 04:45 POC Glucose (mg/dL) 127 mg/dL (65-99) H 06/07/19 05:27 Hemoglobin A1c 6.6 % 06/06/19 04:32 Lactic Acid 1.5 mmol/L (0.4-2.0) 06/04/19 22:53 Calcium 8.1 mg/dL (8.5-10.1) L 06/07/19 04:45 Corrected Calcium 9.7 mg/dL (8.5-10.1) 06/05/19 05:21 Total Bilirubin 0.50 mg/dL (0.2-1.0) 06/05/19 05:21 AST 24 Units/L (15-37) 06/05/19 05:21 ALT 37 Units/L (12-78) 06/05/19 05:21 Alkaline Phosphatase 68 Units/L (46-116) 06/05/19 05:21 Total Protein 6.2 g/dL (6.4-8.2) L 06/05/19 05:21 Albumin 2.2 g/dL (3.4-5.0) L 06/05/19 05:21 Globulin 4.0 g/dL (2.5-4.5) 06/05/19 05:21 Albumin/Globulin Ratio 0.6 Ratio (1.1-2.1) L 06/05/19 05:21 Fluid WBC 438753 Cubic/mm 06/04/19 22:35 Fluid RBC 51219 Cubic/mm 06/04/19 22:35 Vancomycin Trough 10.8 ug/mL (15-20) L 06/06/19 20:15 - Assessment and Plan 1: large abscess Rt lower extremity , S/P I&D . severe diabetic neuropathy . morbid obesity . HTN . same local care , IV ATB , diabetic control and DVT prophylaxis . to have visiting nurse to change dressing , irrigate with 1/2 H2O2 and 1/2 saline . f/u in 1 dfays .. - Problem Patient Problems: Patient Problems Cellulitis and abscess of right lower extremity (Acute) L03.115, L02.415 Failure of outpatient treatment (Acute) Z78.9 Hypothyroidism (Chronic) E03.9 HLD (hyperlipidemia) (Chronic) E78.5 GERD (gastroesophageal reflux disease) (Chronic) K21.9 Diabetes mellitus (Chronic) E11.9 Chronic kidney disease (CKD) (Chronic) N18.9 Hypertension (Chronic) I10
[2019-06-07] MEDS: LOVENOX INJ 40 MG SYR SC SCH (09:49)
[2019-06-07 12:24] VITALS: BP 160/100
[2019-06-07] MEDS ORDERED: SNACK - Diabetic Appropriate PO SCH (20:00)
--- NOTE | 2019-06-08 13:58 | W.DIS.FURT ---
Summary of Discharge Discharge Summary of Date Date of Exam: 06/07/19 Admission Date Date of Admission: 06/04/19 Admission Diagnosis Hospital Course: Mr. Brito is a 49y/o male with a PMH of HTN, HLD, DM and obesity presented with worsening right leg swelling, redness and drainage. He states he slipped of his truck a week ago and had a small injury to his anterior right leg. He was seen in the ED few days ago and given Bactrim for cellulitis. He states the redness and swelling kept getting worse and he also noticed serosanguineous fluid draining from the center. He denies fever or chills, no N/V/D or abdominal pain. He reports having cellulitis over 10 yrs ago, no hx of MRSA or bacteremia. He was started on IV antibiotics. Dr. CABRAL was consulted for I&D. He had the abscess drained and packed. Cultures were sent and grew Staph aureus. He was transitioned to oral bactrim for 10 days. He will follow up with PCP and Dr. Cabral in 1 week. Home health nurse will change dressing daily. Vital Signs: Vital Signs (72 hours) 06/05/19 16:00 06/05/19 20:00 06/06/19 00:00 Temperature 98.7 F 98.5 F 98.4 F Pulse Rate [Apical] 73 72 67 Respiratory Rate 20 20 20 Blood Pressure [Left Arm] 141/81 129/69 119/71 O2 Sat by Pulse Oximetry 98 96 95 06/06/19 04:00 06/06/19 08:00 06/06/19 12:00 Temperature 97.8 F 98.3 F 97.9 F Pulse Rate [Apical] 60 60 61 Respiratory Rate 22 18 18 Blood Pressure [Left Arm] 126/86 128/65 154/94 O2 Sat by Pulse Oximetry 97 100 98 06/06/19 16:00 06/06/19 20:00 06/07/19 00:00 Temperature 98.6 F 98.9 F 98.1 F Pulse Rate [Apical] 64 74 90 Respiratory Rate 20 20 20 Blood Pressure [Left Arm] 137/81 167/101 149/82 O2 Sat by Pulse Oximetry 97 95 97 06/07/19 04:00 06/07/19 08:00 06/07/19 12:00 Temperature 98.4 F 98.2 F 97.7 F Pulse Rate [Apical] 77 76 90 Respiratory Rate 20 20 20 Blood Pressure [Left Arm] 154/93 184/90 160/100 O2 Sat by Pulse Oximetry 95 94 L 93 L Labs: Laboratory Last Values WBC 13.7 X10^3/uL (3.6-10.0) H 06/07/19 04:45 RBC 5.43 X10^6/uL (4.7-6.0) 06/07/19 04:45 Hgb 15.8 g/dL (13.5-18.0) 06/07/19 04:45 Hct 46.9 % (42.0-54.0) 06/07/19 04:45 MCV 86.4 fL (80.0-100.0) 06/07/19 04:45 MCH 29.2 pg (27.0-34.0) 06/07/19 04:45 MCHC 33.7 g/dL (33.0-35.0) 06/07/19 04:45 RDW 13.7 % (11.6-16.5) 06/07/19 04:45 Plt Count 298 X10^3/uL (150.0-450.0) 06/07/19 04:45 Plt Count Comment Adequate (ADEQUATE) 06/04/19 22:53 MPV 8.5 fL (7.4-11.0) 06/07/19 04:45 Neut % (Auto) 77.0 % (42.0-75.0) H 06/07/19 04:45 Lymph % (Auto) 13.8 % (21.0-51.0) L 06/07/19 04:45 [place] % (Auto) 6.1 % (0.0-13.0) 06/07/19 04:45 Eos % (Auto) 2.6 % (0.9-2.9) 06/07/19 04:45 Baso % (Auto) 0.5 % (0.2-1.0) 06/07/19 04:45 Neut # (Auto) 10.5 x10^3/uL (2.2-4.8) H 06/07/19 04:45 Lymph # (Auto) 1.9 X10^3/uL (1.3-2.9) 06/07/19 04:45 [place] # (Auto) 0.8 x10^3/uL (0.3-0.8) 06/07/19 04:45 Eos # (Auto) 0.3 x10^3/uL (0.0-0.2) H 06/07/19 04:45 Baso # (Auto) 0.1 X10^3/uL (0.0-0.1) 06/07/19 04:45 Absolute Nucleated RBC 0.1 /100WBC 06/07/19 04:45 Total Counted 100 06/04/19 22:53 Neutrophils % (Manual) 79 % (39-76) H 06/04/19 22:53 Lymphocytes % (Manual) 13 % (13-43) 06/04/19 22:53 Monocytes % (Manual) 7 % (4-9) 06/04/19 22:53 Plt Clumps, EDTA Few 06/04/19 22:53 Plt Morphology Comment Normal (NORMAL) 06/04/19 22:53 RBC Morphology Normal (NORMAL) 06/04/19 22:53 D-Dimer 291 ng/mL (0-400) 06/04/19 22:53 Sodium 137 mmol/L (136-145) 06/07/19 04:45 Corrected Sodium 138 mmol/L (136-145) 06/07/19 04:45 Potassium 3.7 mmol/L (3.5-5.1) 06/07/19 04:45 Chloride 103 mmol/L (98-107) 06/07/19 04:45 Carbon Dioxide 27.1 mmol/L (21-32) 06/07/19 04:45 BUN 12 mg/dL (7-18) 06/07/19 04:45 Creatinine 1.12 mg/dL (0.70-1.30) 06/07/19 04:45 Est GFR (MDRD) Af Amer > 60 (>60) 06/07/19 04:45 Est GFR (MDRD) Non-Af > 60 (>60) 06/07/19 04:45 Glucose 141 mg/dL (65-99) H 06/07/19 04:45 POC Glucose (mg/dL) 127 mg/dL (65-99) H 06/07/19 05:27 Hemoglobin A1c 6.6 % 06/06/19 04:32 Lactic Acid 1.5 mmol/L (0.4-2.0) 06/04/19 22:53 Calcium 8.1 mg/dL (8.5-10.1) L 06/07/19 04:45 Corrected Calcium 9.7 mg/dL (8.5-10.1) 06/05/19 05:21 Total Bilirubin 0.50 mg/dL (0.2-1.0) 06/05/19 05:21 AST 24 Units/L (15-37) 06/05/19 05:21 ALT 37 Units/L (12-78) 06/05/19 05:21 Alkaline Phosphatase 68 Units/L (46-116) 06/05/19 05:21 Total Protein 6.2 g/dL (6.4-8.2) L 06/05/19 05:21 Albumin 2.2 g/dL (3.4-5.0) L 06/05/19 05:21 Globulin 4.0 g/dL (2.5-4.5) 06/05/19 05:21 Albumin/Globulin Ratio 0.6 Ratio (1.1-2.1) L 06/05/19 05:21 Fluid WBC 979275 Cubic/mm 06/04/19 22:35 Fluid RBC 23630 Cubic/mm 06/04/19 22:35 Vancomycin Trough 10.8 ug/mL (15-20) L 06/06/19 20:15 Reason For Visit: CELLULITIS AND ABSCESS RIGHT LOWER LEG; DIABETES; Discharge Date Discharge Date: 06/07/19 Discharge Diagnosis All Active Problems (Updated 06/06/19 @ 16:19 by Claudine Olsen) Cellulitis and abscess of right lower extremity (Acute) Failure of outpatient treatment (Acute) Hypothyroidism (Chronic) HLD (hyperlipidemia) (Chronic) GERD (gastroesophageal reflux disease) (Chronic) Diabetes mellitus (Chronic) Chronic kidney disease (CKD) (Chronic) Hypertension (Chronic) Plan of Treatment: Continue with present treatment and follow up plan. Pt is to keep follow up appointment as instructed and take medications as ordered. Discharge Medications Discharge Medications: No Known Drug Allergies Allergy (Verified 05/31/19 20:41) CONTINUE taking the following medications atorvastatin 40 mg PO DAILY 06/05/19 [History] hydrocodone-acetaminophen [[place]] 1 tab PO BID PRN 06/05/19 [History] New Prescriptions sulfamethoxazole-trimethoprim [Bactrim DS] 1 tab PO BID 10 Days #20 tab 06/07/19 [Rx] Follow up and Referral Follow Up: 1 Week (PCP) 1 Week (Surgery ) Discharge Disposition Discharge Disposition: Home with home health Discharge Condition: Stable
== END 2019-06-07 12:50 | disposition home health service (06) | DRG 603 ==
LOC: ER 21:31 → MED/SURG 06-05 00:54
PROVIDERS: ADMIT Internal Medicine; ATTEND Internal Medicine
DX: E66.8 Other obesity; K21.9 Gastro-esophageal reflux disease without esophagitis; I82.499 Acute embolism and thrombosis of other specified deep vein of unspecified lower extremity; E03.8 Other specified hypothyroidism; N18.3 Chronic kidney disease, stage 3 (moderate); E11.42 Type 2 diabetes mellitus with diabetic polyneuropathy; R60.0 Localized edema; L02.415 Cutaneous abscess of right lower limb; L03.115 Cellulitis of right lower limb; I12.9 Hypertensive chronic kidney disease with stage 1 through stage 4 chronic kidney disease, or unspecified chronic kidney disease; E78.5 Hyperlipidemia, unspecified; B95.61 Methicillin susceptible Staphylococcus aureus infection as the cause of diseases classified elsewhere; E11.628 Type 2 diabetes mellitus with other skin complications
CPT/HCPCS: 36415; 73590; 80048; 80053; 80202; 82565; 83036; 83605; 85025; 85378; 87070; 87075; 87077; 87186; 87205; 89050; 89051; 96365; 96374; 96375; 99284; A4216; A4222; J1650; J1815; J2543; J3370; J7030; J7040; J7050; S0077